=== PATIENT | male | born 1950 | race Caucasian/White ===

== ENCOUNTER 2016-10-11 23:20 | Emergency (ER) | payer OTHER ==
[~2016-10-11] VITALS: Ht 188 cm; Wt 86.4 kg
[~2016-10-11 23:20] MED LIST: INHALER; LISI-660 PO
[2016-10-11 23:42] LABS: GLUCOSE,POINT OF CARE 166 MG/DL (70-110)
[2016-10-11 23:55] LABS: BASOPHILS % (AUTO) 0.1 % (0.0-2.0); EOSINOPHILS % (AUTO) 0.16 % (1.0-6.0); HEMATOCRIT 36.1 % (41-53); HEMOGLOBIN 12.3 g/dL (13.5-17.5); LYMPHOCYTES # (AUTO) 1.2 K/uL (1.0-4.8); LYMPHOCYTES % (AUTO) 61.2 % (22.0-44.0); MEAN CORPUSCULAR HEMOGLOBIN 31.1 pg (26.0-34.0); MEAN CORPUSCULAR HGB CONC 34.1 G/dL (31.0-37.0); MEAN CORPUSCULAR VOLUME 91 fL (80-100); MONOCYTES # (AUTO) 0.2 K/uL (0.1-1.0); NEUTROPHILS # (AUTO) 0.6 K/uL (1.8-7.7); NEUTROPHILS % (AUTO) 30.5 % (40.0-70.0); PLATELET COUNT (AUTO) 172 K/uL (150-450); RED BLOOD CELL COUNT(AUTO) 3.96 MIL/uL (4.50-5.90); RED CELL DISTRIBUTION WIDTH 14.9 % (11.5-14.5)
[2016-10-12] LABS: ANION GAP 0 mmol/L (8-16); CALCIUM, TOTAL 8.7 mg/dL (8.8-10.5); CARBON DIOXIDE 26 mmol/L (22-29); CHLORIDE 99 mmol/L (98-107); CREATININE 1.14 mg/dL (0.60-1.30); GLOMERULAR FILTR. RATE CALC > 60 mL/min (>60); POTASSIUM 4.2 mmol/L (3.5-5.1); SODIUM SERUM 125 mmol/L (136-145); UREA NITROGEN, BLOOD 17 mg/dL (7-18)
[2016-10-12] MEDS ORDERED: DEXA4 PO
[2016-10-12] MEDS ORDERED: COMBISP IH
[2016-10-12] MEDS ORDERED: MULT-248 PO
[2016-10-12] MEDS ORDERED: SENN-31 PO
[2016-10-12] MEDS ORDERED: ONDA4 PO
[2016-10-12] MEDS ORDERED: FAMO20 PO
[2016-10-12] MEDS ORDERED: OSEL75 PO
[2016-10-12] MEDS ORDERED: ALLO300 PO
[2016-10-12] MEDS ORDERED: HYDR-309 PO
[2016-10-12] MEDS ORDERED: ENOX40DI9 SQ
[2016-10-12] MEDS ORDERED: INSU100V SQ
[2016-10-12] MEDS ORDERED: FOLI1 PO
[2016-10-12] MEDS ORDERED: QUET25TA PO
[2016-10-12 00:03] LABS: WHITE BLOOD COUNT (AUTO) 2.6 K/uL (4.5-11.0)
[2016-10-12 00:07] LABS: ALANINE AMINOTRANSFERASE 189 U/L (12-78); ASPARTATE AMINOTRANSFERASE 96 U/L (15-37); BILIRUBIN,TOTAL 0.2 mg/dL (0.1-1.0); TOTAL PROTEIN, SERUM 6.9 g/dL (6.4-8.2)
[2016-10-12 00:52] VITALS: BP 109/73
== END 2016-10-12 01:40 | disposition home or self-care (01) ==
LOC: EMS 23:22
DX: R46.89 Other symptoms and signs involving appearance and behavior (principal); C79.31 Secondary malignant neoplasm of brain; C79.49 Secondary malignant neoplasm of other parts of nervous system; E87.1 Hypo-osmolality and hyponatremia; D72.819 Decreased white blood cell count, unspecified; E44.0 Moderate protein-calorie malnutrition; F17.210 Nicotine dependence, cigarettes, uncomplicated; I10 Essential (primary) hypertension; Z68.24 Body mass index [BMI] 24.0-24.9, adult; Z88.0 Allergy status to penicillin
CPT/HCPCS: 36415; 80053; 82962; 85025; 99285; G0480